=== PATIENT | male | born 1950 | race Caucasian/White ===

== ENCOUNTER 2018-11-22 14:17 | Outpatient (CLI) | payer BC ==
[2018-11-22 17:38] LABS: Bilirubin Negative (Negative); Blood, Urine Negative (Negative); Glucose, Urine (Dipstick) Negative (Negative); Leukocyte Negative (Negative); Nitrite Negative (Negative); Protein, Urine (Dipstick) Negative (Neg-Trace); Urobilinogen 0.2 mg/dL (Less than 2)
[2018-11-22 17:39] LABS: Clarity Clear (Clear)
[2018-11-22 17:41] LABS: #Basophils 0.1 thou/uL (0.0-0.2); #Eosinphils 0.4 thou/uL (0.0-0.7); #Lymphocytes 2.1 thou/uL (1.20-3.40); #Monocytes 0.9 thou/uL (0.11-0.59); #Neutrophils 4.7 thou/uL (1.40-6.50); %Basophils 0.9 % (0.0-1.0); %Eosinophils 4.4 % (0.0-10.0); %Lymphocytes 25.8 % (21.0-51.0); %Monocytes 10.7 % (0.0-10.0); %Neutrophils 58.3 % (42.0-75.0); Hemoglobin 14.5 g/dL (14.0-18.0); Mean Corpuscular HGB CONC 32.5 g/dL (32.0-36.0); Mean Corpuscular Volume 89.2 fL (78.0-98.0); Mean Platelet Volume 6.2 fL (7.4-10.4); Platelet Count 304 thou/uL (130-400); RBC Distribution Width 13.1 % (11.5-14.5); Red Blood Cell (RBC) Count 5.01 mill/uL (4.70-6.10); White Blood Cell (WBC) Count 8.1 thou/uL (4.8-10.8)
[2018-11-22 17:47] LABS: RBC/HPF None Seen HPF (0-3); Squamous Epithelial None Seen HPF (0-3); WBC/HPF None Seen HPF (0-3)
[2018-11-22 17:48] LABS: Bacteria/HPF None Seen HPF (None Seen); Urine Culture Reflex No No
[2018-11-22 18:00] LABS: INR-International Normal Ratio 0.9; PTT 29.7 SEC (22.9-36.1); Prothrombin Time 12.3 SEC (12.0-14.7)
[2018-11-22 18:01] LABS: Anion Gap 12 mmol/L (10-20); BUN (Urea Nitrogen) 20 mg/dL (8.4-25.7); Calc. Creatinine Clearance 0 mL/min (70-130); Calcium 10.3 mg/dL (7.8-10.44); Carbon Dioxide 25 mmol/L (23-31); Chloride 105 mmol/L (98-107); Estimated GFR-MDRD 63; Glucose 107 mg/dL (80-115); Potassium 4.2 mmol/L (3.5-5.1); Sodium 138 mmol/L (136-145)
--- NOTE | 2018-11-24 11:26 | EKG ---
Test Reason : Blood Pressure : / mmHG Vent. Rate : 061 BPM Atrial Rate : 061 BPM P-R Int : 186 ms QRS Dur : 100 ms QT Int : 420 ms P-R-T Axes : 061 039 052 degrees QTc Int : 422 ms Normal sinus rhythm Normal ECG Confirmed by MIGUEL CESAR ([id number]) on 11/24/2018 11:25:32 AM Referred By: ANISA Confirmed By:MIGUEL CESAR
== END 2018-11-22 14:18 | disposition home or self-care (01) ==
LOC: LABBT 14:17 → EDSTATUS 16:00
PROVIDERS: ATTEND Urology
DX: Z01.818 Encounter for other preprocedural examination (principal); N40.1 Benign prostatic hyperplasia with lower urinary tract symptoms
CPT/HCPCS: 80048; 81001; 85025; 85610; 85730; 93005; 93010

== ENCOUNTER 2018-11-24 06:35 | Day surgery (SDC) | payer BC ==
[2018-11-22 16:21] VITALS: BMI 28.8
[2018-11-24] MEDS ORDERED: Levofloxacin 500 mg/D5W 100 ml Premix Bag ONE (09:03)
[2018-11-24] MEDS ORDERED: Midazolam HCl 2 mg/2 ml Vial ONE (09:07)
[2018-11-24] MEDS ORDERED: Fentanyl 100 MCG/2 ML VIAL ONE (09:08)
[2018-11-24] MEDS ORDERED: Ketamine 50 MG/ML (10ML VIAL) ONE (09:08)
--- NOTE | 2018-11-24 10:33 | OP ---
DATE OF PROCEDURE: 11/24/2018 SERVICE: Urology. PREOPERATIVE DIAGNOSIS: Benign prostatic hyperplasia with obstruction. POSTOPERATIVE DIAGNOSIS: Benign prostatic hyperplasia with obstruction. PROCEDURE PERFORMED: UroLift. INDICATION FOR PROCEDURE: Mr. Sena is a 68-year-old white male, who has a prostatic obstruction. He is currently on Flomax, which has helped, but he does not want to remain on medication indefinitely. We discussed multiple procedures including transurethral vaporization of prostate and UroLift. After discussion of options, he has agreed to proceed forward with the UroLift procedure. DESCRIPTION OF PROCEDURE: After identification of armband and verification of consent, the patient was brought back to the operating room. He underwent total intravenous anesthesia. He was then placed in dorsal lithotomy position and prepped and draped in a usual sterile fashion. After appropriate time-out, a 21-Azerbaijani rigid cystoscope with visual obturator was passed into the urethra and into the bladder. The prostate showed a bilobar hypertrophy with a high bladder neck. 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 The blue trigger was fired to deploy the needle and the stitch deployed with pruitt lever. The UroLift was advanced forward until the white line was in the keyhole and then the steel tab fired. This was then repeated again on the left side of the prostate near the apex. This did result in a nice channel on the apical aspect. This was then repeated again near the bladder neck on the right and left side creating a nice anterior channel. There was one little lobe on the right that stuck out a little extra. Then, we decided to place one more implant on the right side, which resulted in a nice anterior channel and open bladder neck. Upon completion, bleeding was noted to be minimal. The cystoscope was removed and an 18-Azerbaijani Gasca catheter was placed into the bladder with ease with 10 mL of sterile water in the balloon. The catheter was left to gravity drainage. The patient was taken out of positioning, awakened, and taken to Day Stay for recovery in stable condition. COMPLICATIONS: None. ESTIMATED BLOOD LOSS: Minimal. RETAINED TUBES AND DRAINS: An 18-[place]zerbaijani Gasca catheter. SPECIMENS: None. DISPOSITION: The patient will be discharged home and follow up with wi in approximately a week for postop check. Job ID: [id number]
[2018-11-24] MEDS ORDERED: Oxybutynin 5 MG TAB ONE (15:54)
[2018-11-24] MEDS ORDERED: HYDROcodone/Acetaminophen 5/325 mg Tablet ONE (17:09)
== END 2018-11-24 17:50 | disposition home or self-care (01) ==
LOC: SDC 06:35
PROVIDERS: ATTEND Urology
PROC: 0T7D8DZ Dilation of Urethra with Intraluminal Device, Via Natural or Artificial Opening Endoscopic (ICD-10-PCS; principal; 2018-11-24)
DX: N40.1 Benign prostatic hyperplasia with lower urinary tract symptoms (principal); N13.8 Other obstructive and reflux uropathy; N52.9 Male erectile dysfunction, unspecified; R35.1 Nocturia; I10 Essential (primary) hypertension; E78.5 Hyperlipidemia, unspecified; K21.9 Gastro-esophageal reflux disease without esophagitis; Z79.899 Other long term (current) drug therapy; Z87.891 Personal history of nicotine dependence
CPT/HCPCS: C1889; J1956; J2250; J3010

== ENCOUNTER 2018-11-25 02:47 | Emergency (ER) | payer BC ==
[2018-11-25 03:40] LABS: Bilirubin Small (Negative); Blood, Urine Large (Negative); Glucose, Urine (Dipstick) Negative (Negative); Leukocyte Negative (Negative); Nitrite Negative (Negative); Protein, Urine (Dipstick) 100 mg/dL (Neg-Trace)
[2018-11-25 03:46] LABS: Clarity Hazy (Clear)
[2018-11-25 03:47] LABS: Bacteria/HPF None Seen HPF (None Seen); Oval Fat Bodies/HPF None Seen HPF (None Seen); RBC/HPF Greater than 50 HPF (0-3); Renal Epithelial None Seen HPF (None Seen); Squamous Epithelial None Seen HPF (0-3); Transitional Epithelial None Seen HPF (None Seen); Trichomonas/HPF None Seen HPF (None Seen); WBC/HPF None Seen HPF (0-3); Yeast-Budding None Seen HPF (None Seen)
[2018-11-25 03:48] LABS: Crystals/HPF None Seen HPF (Negative)
[2018-11-25] MEDS ORDERED: Ciprofloxacin 500 MG TAB ONE (04:10)
== END 2018-11-25 04:10 | disposition home or self-care (01) ==
LOC: ERS 02:47
DX: R33.9 Retention of urine, unspecified (principal); I10 Essential (primary) hypertension; K21.9 Gastro-esophageal reflux disease without esophagitis; M19.90 Unspecified osteoarthritis, unspecified site; Z79.899 Other long term (current) drug therapy; Z79.82 Long term (current) use of aspirin
CPT/HCPCS: 51702; 81003; 81015

== ENCOUNTER 2023-08-05 09:16 | Day surgery (SDC) | payer BC ==
[2023-08-04 09:20] VITALS: BMI 28.8
[2023-08-05] MEDS ORDERED: Lidocaine 1% PF 5 ML VIAL ONE (11:02)
[2023-08-05] MEDS ORDERED: Rocuronium Bromide 10 MG/ML (10ML VIAL) ONE (11:02)
[2023-08-05] MEDS ORDERED: Dexamethasone 20 MG/5 ML VIAL ONE (11:02)
[2023-08-05] MEDS ORDERED: fentaNYL PF 100 MCG/2 ML SYRINGE ONE (11:02)
[2023-08-05] MEDS ORDERED: Ondansetron PF 4 MG/2 ML Vial ONE (11:02)
[2023-08-05] MEDS ORDERED: PROPOFOL 20 ML ONE (11:02)
[2023-08-05] MEDS ORDERED: Oxymetazoline HCl 0.05% (30 ML BOT) ONE ×2 (11:41→12:13)
[2023-08-05] MEDS ORDERED: Lidocaine 1% (PF) 30 ML VIAL ONE (12:13)
[2023-08-05] MEDS ORDERED: Bacitracin Zinc Ointment 30 gm TUBE ONE (12:13)
[2023-08-05] MEDS ORDERED: EPINEPHrine 1 MG/ML VIAL ONE (12:13)
[2023-08-05] MEDS ORDERED: NEOSTIGMINE 3 MG/3 ML SYR 3 MG/3 ML SYRINGE ONE (13:00)
[2023-08-05] MEDS ORDERED: ePHEDrine Sulfate 50 MG/10 ML VIAL ONE (13:00)
[2023-08-05] MEDS ORDERED: Glycopyrrolate 0.2 MG/ML 5 ML SYRINGE ONE (13:00)
[2023-08-05] MEDS ORDERED: fentaNYL 50 mcg/mL 1 mL Vial ONE ×2 (13:30→14:13)
[2023-08-05] MEDS ORDERED: Labetalol HCl 100 MG/20 ML VIAL ONE (14:13)
[2023-08-05] MEDS ORDERED: hydrALAZINE 20 MG/ML VIAL ONE (14:14)
== END 2023-08-05 15:45 | disposition home or self-care (01) ==
LOC: SDC 09:16
PROVIDERS: ATTEND Specialist
PROC: 09BQ8ZZ Excision of Right Maxillary Sinus, Via Natural or Artificial Opening Endoscopic (ICD-10-PCS; principal; 2023-08-05)
PROC: 09BS8ZZ Excision of Right Frontal Sinus, Via Natural or Artificial Opening Endoscopic (ICD-10-PCS; principal; 2023-08-05)
PROC: 09BW8ZZ Excision of Right Sphenoid Sinus, Via Natural or Artificial Opening Endoscopic (ICD-10-PCS; principal; 2023-08-05)
PROC: 09SM4ZZ Reposition Nasal Septum, Percutaneous Endoscopic Approach (ICD-10-PCS; principal; 2023-08-05)
PROC: 09BT8ZZ Excision of Left Frontal Sinus, Via Natural or Artificial Opening Endoscopic (ICD-10-PCS; principal; 2023-08-05)
PROC: 09TL8ZZ Resection of Nasal Turbinate, Via Natural or Artificial Opening Endoscopic (ICD-10-PCS; principal; 2023-08-05)
PROC: 09BV8ZZ Excision of Left Ethmoid Sinus, Via Natural or Artificial Opening Endoscopic (ICD-10-PCS; principal; 2023-08-05)
PROC: 09BU8ZZ Excision of Right Ethmoid Sinus, Via Natural or Artificial Opening Endoscopic (ICD-10-PCS; principal; 2023-08-05)
PROC: 09BX8ZZ Excision of Left Sphenoid Sinus, Via Natural or Artificial Opening Endoscopic (ICD-10-PCS; principal; 2023-08-05)
PROC: 09BR8ZZ Excision of Left Maxillary Sinus, Via Natural or Artificial Opening Endoscopic (ICD-10-PCS; principal; 2023-08-05)
DX: J34.2 Deviated nasal septum (principal); J34.3 Hypertrophy of nasal turbinates; J32.4 Chronic pansinusitis; J30.89 Other allergic rhinitis; J30.1 Allergic rhinitis due to pollen; J30.81 Allergic rhinitis due to animal (cat) (dog) hair and dander; I10 Essential (primary) hypertension; E78.5 Hyperlipidemia, unspecified; Z79.899 Other long term (current) drug therapy
CPT/HCPCS: 87070; 87205; J0171; J0360; J1100; J2001; J2405; J2704; J3010